=== PATIENT | male | born 1995 | race Caucasian/White ===

== ENCOUNTER 2021-09-03 08:59 | Emergency (ER) | payer OTHER ==
[2021-09-03 13:59] LABS: BILIRUBIN NEGATIVE (NEGATIVE); BLOOD 2+ Ery/uL (NEGATIVE); CLARITY HAZY (CLEAR); COLOR YELLOW (YELLOW); GLUCOSE (U) NORMAL (NORMAL); LEUKOCYTES TRACE Leu/uL (NEGATIVE); NITRITE NEGATIVE (NEGATIVE); PROTEIN NEGATIVE (NEGATIVE); SPECIFIC GRAVITY 1.025 (1.001-1.030); UROBILINOGEN 0.2 mg/dL (0.2-1.0)
[2021-09-03 14:22] LABS: MUCOUS MODERATE; URINARY RBC 20-50
[2021-09-03 14:23] LABS: BACTERIA TRACE
[2021-09-03] MEDS ORDERED: ONDANSETRON ODT4 MG PO (15:06)
[2021-09-03] MEDS ORDERED: NAPROXEN500 MG PO (15:06)
[2021-09-03] MEDS ORDERED: VIBRAMYCIN100 MG PO (15:06)
== END 2021-09-03 15:25 | disposition home or self-care (01) ==
LOC: FER 08:59
PROVIDERS: Emergency Medicine
DX: R10.32 Left lower quadrant pain (principal); F17.290 Nicotine dependence, other tobacco product, uncomplicated; Z88.1 Allergy status to other antibiotic agents
CPT/HCPCS: 81001